=== PATIENT | female | born 1980 | race Caucasian/White ===

== ENCOUNTER 2018-04-22 12:46 | Emergency (ER) | payer OTHER, SELFPAY ==
[2018-04-22 12:47] VITALS: BP 140/83; PULSE 110; RESP 18; TEMP 36.6; O2SAT 100; BMI 25.2
[2018-04-22 13:02] VITALS: BP 121/96; PULSE 77; RESP 16; O2SAT 99
--- NOTE | 2018-04-22 13:20 | RAD_ITS ---
STUDY: X-RAY CHEST REASON FOR EXAM: Female, 38 years old. Shortness of breath. TECHNIQUE: Single AP portable view of the chest. COMPARISON: None. FINDINGS: EKG electrodes are seen. The lungs are clear and expanded. There is no demonstrated pleural abnormality. Normal size heart. Normal mediastinum and nick. Normal visualized pulmonary arteries. Normal visualized aortic arch and descending thoracic aorta. Normal visualized thoracic spine. Normal visualized ribs, clavicles, and shoulders. There is no demonstrated abnormality of the visualized soft tissue structures of the upper abdomen. RAD/Chest 1 View (Portable) IMPRESSION: Normal x-ray examination of the chest. Electronically Signed: Marcelo Méndez MD at 13:42 EDT Tel [phone], Service support ,
--- NOTE | 2018-04-22 13:20 | EKG12_ITS ---
Test Reason : DIZZINESS Blood Pressure : / mmHG Vent. Rate : 090 BPM Atrial Rate : 090 BPM P-R Int : 156 ms QRS Dur : 092 ms QT Int : 382 ms P-R-T Axes : 072 068 044 degrees QTc Int : 467 ms Normal sinus rhythm Normal ECG Confirmed by ELSA DOMÍNGUEZ ([id number]), writer editor ROGELIO MERINO ([id number]) on 05/05/2018 5:55:29 PM Referred By: DANELLE Confirmed By:ELSA DOMÍNGUEZ
--- NOTE | 2018-04-22 13:23 | ED.VISSUMM ---
- ER Visit Summary Date of Service: 04/22/18 Chief Complaint: Dizziness History of Present Illness: The patient is a 38 F presents with dizziness which she describes as lightheadedness. She has felt like she was going to pass out but has not completely passed out. She complains of palpitations. She denies chest pain. Denies headache. Denies numbness or weakness. Denies other complaints. Physical Examination: Vitals are stable. Patient is afebrile. Alert no acute distress. HEENT exam is unremarkable. Neck is supple. Lungs are clear and equal bilaterally. Heart is regular rate and rhythm. Abdomen is soft nontender nondistended. Extremities are unremarkable. Skin is warm and dry. No focal neurologic deficit. Anxious Remainder of exam is unremarkable. Emergency Department Course and Treatment: Patient is given IV fluids. EKG sinus rate of 90 with no acute ischemic changes. Chest x-ray shows no acute process. CBC shows a white count 11.6. D-dimer is negative. Chemistries unremarkable other than potassium of 3.3. Troponin is negative. TSH is normal. She is given potassium oral replacement. On reevaluation, she is feeling improved. She is able to ambulate in the ED without any difficulty. She is advised to follow-up with her primary care physician. She is advised return to the ED for worsening complaints. Disposition: Discharge home Impression: Dizziness, resolved This note was generated with [employer] dictation software. It may contain incorrect words, spelling, and punctuation that were not noted in review of the chart prior to signing ED Disposition - Plan for ED Patient: Chief Complaint: Dizziness Referrals: Soham Christiansen MD [Primary Care Provider] -
[2018-04-22] MEDS: 0.9% Normal Saline 1,000 ML 1000 ML IV (14:12)
[2018-04-22 14:19] VITALS: BP 104/59; BP 110/76; BP 111/76; PULSE 73; PULSE 77; PULSE 99
[2018-04-22 14:25] LABS: Absolute Lymphocyte Count 0.87 X10^3/ul (0.83-4.51); Absolute Neutrophil Count 10.3 X10^3/uL (2.0-7.7); Basophil# 0.02 X10^3/uL; Basophil% 0.2 % (0-1); Eosinophil# 0.02 X10^3/uL; Eosinophils% 0.2 % (0-5); Hematocrit 40.8 % (37-47); Hemoglobin 13.6 g/dl (12.0-15.0); Lymphocyte # 0.87 X10^3/ul (4.0); Lymphocyte % 7.5 % (19-41); Mean Corp Hgb Conc 33.3 g/gl (32-36); Mean Corpuscular Hgb 28.9 pg (27.0-32.0); Mean Corpuscular Volume 86.8 fL (81-99); Mean Platelet Vol. 9.4 fl (6.2-12.0); Monocyte# 0.36 X10^3/uL; Monocyte% 3.1 % (0-10); Neutrophil # 10.33 X10^3/uL (2.7-7.7); Neutrophil % 88.9 % (47-70); Platelet Count 269 K/mm3 (150-450); RBC Distribution Width CV 12.6 % (11.6-14.6); RBC Distribution Width SD 40.4 fl (35.1-43.9); White Blood Count 11.6 K/mm3 (4.4-11.0)
[2018-04-22 14:28] LABS: POSITIVE COUNT NO; POSITIVE DIFFERENTIAL NO; POSITIVE MORPHOLOGY NO
[2018-04-22 14:35] LABS: D-Dimer Quantitative (DVT/PE) 0.47 FEU/ug/m (0.27-0.49)
[2018-04-22 15:05] LABS: Anion Gap 9 (5-15); BUN 12 mg/dL (7-18); BUN/Creat Ratio 14.5 RATIO (10-20); Calcium,Total 8.9 mg/dL (8.5-10.1); Chloride 108 mmol/L (98-107); Creatinine, Serum 0.83 mg/dL (0.55-1.02); EST Glomerular Filtration Rate 82 mL/min (>60); Est Glom Filt Rate - Afr Amer 99 mL/min (>60); Estimated Creatinine Clearance 78.58 ml/min; Glucose 96 mg/dL (74-106); Potassium 3.3 mmol/L (3.5-5.1); Sodium Level 142 mmol/L (136-145)
[2018-04-22 15:37] VITALS: BP 107/56; PULSE 74; RESP 16; O2SAT 97
--- NOTE | 2018-04-22 15:41 | ED.DEP ---
ED Disposition - Plan for ED Patient: Chief Complaint: Dizziness Instructions: ED Near Syncope Unkn Referrals: Soham Christiansen MD [Primary Care Provider] -
== END 2018-04-22 16:11 | disposition home or self-care (01) ==
PROVIDERS: Emergency Provider Emergency Medicine; Family Provider Family Medicine; PCP Family Medicine
DX: R42 Dizziness and giddiness (principal); R00.2 Palpitations; Z90.710 Acquired absence of both cervix and uterus
CPT/HCPCS: 71045; 80048; 84443; 84484; 85025; 85379; 93005; 99285; J7030; A4216

== ENCOUNTER → 2018-04-25 11:36 | Outpatient (CLI) | payer OTHER, SELFPAY | PROVIDERS: Family Provider Family Medicine; PCP Family Medicine | DX: R42 Dizziness and giddiness (principal); R00.2 Palpitations; H53.19 Other subjective visual disturbances | CPT/HCPCS: 93225; 93226 ==

== ENCOUNTER 2020-03-24 08:36 | Emergency (ER) | payer OTHER, SELFPAY ==
[2020-03-24 08:37] VITALS: BP 143/93; PULSE 104; RESP 20; TEMP 36; O2SAT 99; BMI 27.5
--- NOTE | 2020-03-24 08:53 | EKG12_ITS ---
Test Reason : Blood Pressure : / mmHG Vent. Rate : 085 BPM Atrial Rate : 085 BPM P-R Int : 134 ms QRS Dur : 088 ms QT Int : 364 ms P-R-T Axes : 059 070 024 degrees QTc Int : 433 ms Sinus rhythm with marked sinus arrhythmia Nonspecific ST and T wave abnormality Abnormal ECG Confirmed by EMIL TINEO, CAIT ([id number]), photograph editor ROGELIO MERINO ([id number]) on 03/28/2020 2:20:01 PM Referred By: NARENDRA Confirmed By:CAIT STEIN MD
--- NOTE | 2020-03-24 08:54 | RAD_ITS ---
STUDY: X-RAY CHEST REASON FOR EXAM: Female, 40 years old. Dizziness, chest tightness, nausea TECHNIQUE: PA and lateral views of the chest. COMPARISON: Comparison is made with prior examination dated April 22, 2018. FINDINGS: EKG electrodes are seen. Scattered calcified granulomas. The lungs are clear. There is no demonstrated pleural abnormality. Normal size heart. Normal mediastinum and nick. Normal visualized pulmonary arteries. Normal visualized aortic arch and descending thoracic aorta. Normal visualized thoracic spine. Normal visualized ribs, clavicles, and shoulders. There is no demonstrated abnormality of the visualized soft tissue structures of the upper abdomen. RAD/Chest PA and Lateral IMPRESSION: Unremarkable examination. Electronically Signed: Marcelo Méndez, at 9:29 EDT , Service support ,
[2020-03-24 09:11] VITALS: O2SAT 99
[2020-03-24 09:13] LABS: Absolute Lymphocyte Count 1.38 X10^3/uL (0.83-4.51); Absolute Neutrophil Count 7.7 X10^3/uL (2.0-7.7); Basophil# 0.06 X10^3/uL; Basophil% 0.6 % (0-1); Eosinophil# 0.05 X10^3/uL; Eosinophils% 0.5 % (0-5); Hematocrit 43.3 % (37-47); Hemoglobin 15.1 g/dL (12.0-15.0); Lymphocyte # 1.38 X10^3/ul (4.0); Lymphocyte % 14.4 % (19-41); Mean Corp Hgb Conc 34.9 g/dL (32-36); Mean Corpuscular Volume 88.9 fL (81-99); Mean Platelet Vol. 9.3 fl (6.2-12.0); Monocyte# 0.38 X10^3/uL; NRBC Flagged by Analyzer 0 % (0-5); Neutrophil # 7.67 X10^3/uL (2.7-7.7); Neutrophil % 80.2 % (47-70); Platelet Count 288 K/mm3 (150-450); RBC Distribution Width CV 12.4 % (11.6-14.6); RBC Distribution Width SD 39.3 fl (35.1-43.9); Red Blood Count 4.87 M/mm3 (4.2-5.4); White Blood Count 9.6 K/mm3 (4.4-11.0)
[2020-03-24] MEDS: Ondansetron 4 MG/2 ML Vial IM (09:13)
[2020-03-24] MEDS: LORazepam 2 MG/ML Syringe 0.5 MG IV (09:13)
[2020-03-24] MEDS: 0.9% Normal Saline 1,000 ML 1000 ML IV ×2 (09:25→10:01)
[2020-03-24 09:32] LABS: Anion Gap 11 (5-15); BUN 13 mg/dL (7-18); BUN/Creat Ratio 13.4 RATIO (10-20); Calcium,Total 9.3 mg/dL (8.5-10.1); Chloride 105 mmol/L (98-107); Creatinine, Serum 0.97 mg/dL (0.55-1.02); EST Glomerular Filtration Rate 67 mL/min (>60); Est Glom Filt Rate - Afr Amer 81 mL/min (>60); Estimated Creatinine Clearance 65.91 ml/min; Glucose 132 mg/dL (74-106); Potassium 3.4 mmol/L (3.5-5.1); Sodium Level 139 mmol/L (136-145)
[2020-03-24 10:00] LABS: D-Dimer Quantitative (DVT/PE) 0.56 FEU/ug/m (0.27-0.49)
--- NOTE | 2020-03-24 10:01 | CT_ITS ---
STUDY: CTA CHEST REASON FOR EXAM: Female, 40 years old. Elevated ddi james RADIATION DOSAGE (If Supplied By Facility): CTDIvol = ( 8.66 ) mGy, DLP = ( 365.32 ) mGycm TECHNIQUE: The examination was performed with the intravenous administration of 100ml isovue 370. Post-processing of the angiographic images was performed, with multiplanar reformation and 3D reconstruction. Individualized dose optimization techniques were used for this CT. COMPARISON: Comparison is made with prior chest radiograph done earlier in the day. FINDINGS: There is a 2.2 cm by 2.6 cm soft tissue nodular density in the upper lateral portion of the right breast. A tissue clip marker is seen within from prior biopsy. Normal enhancement of the main pulmonary artery and right and left pulmonary arteries. Normal enhancement of the bilateral peripheral pulmonary arteries. There is no demonstrated pulmonary embolism. Normal thoracic aorta and visualized great vessels. There is no demonstrated aortic dissection. Normal heart and pericardium. Normal mediastinum. Normal hilar regions. Normal visualized trachea and bronchi. The lungs are well expanded. Normal pulmonary parenchyma. Normal pleura. Normal chest wall structures. Normal osseous structures. Normal visualized upper abdomen. CT/CTA Chest W/WO Contrast IMPRESSION: Normal CTA chest examination, without a demonstrated pulmonary embolism or arterial dissection. 2.2 cm x 2.6 cm soft tissue nodule in the right breast as described. A tissue clip marker is seen within it from prior biopsy. Electronically Signed: Marcelo Méndez, at 10:35 EDT , Service support ,
--- NOTE | 2020-03-24 10:02 | ED.VIS.GEN ---
History of Present Illness Chief Complaint: Dizziness Narrative: 40-year-old female presents with palpitations and lightheadedness. She denies recent travel. No recent immobilization. No history of DVT or PE. She essentially woke up feeling lightheaded and her heart rate was elevated. This happened to her a few years ago. She saw basket sorter and wore a Holter monitor. No conclusive cause was found. She denies increased caffeine intake. She denies stressors. Prior similar symptoms: Yes Capacity - Capacity Assessment Tool Can the patient make a choice & communicate that choice?: Yes Past Medical History - Allergies and Home Meds Allergies/Adverse Reactions: Allergies No Known Allergies Allergy (Verified 03/24/20 08:41) Primary Care Physician: Christ Sandhu MD [Primary Care Provider] - Prior records reviewed: Yes Lives: Spouse/ Significant Other Smoking Status: Former smoker Review of Systems All systems negative except as indicated General: Denies: Chills, Fever, Sweats Eyes: Denies: Visual changes - bilaterally, Diplopia ENT: Denies: Rhinorrhea, Sore throat Cardiovascular: Reports: Palpitations, Heart racing. Denies: Chest pain Respiratory: Reports: Dyspnea. Denies: Cough, Dyspnea on exertion Gastrointestinal: Denies: Abdominal pain, Nausea, Vomiting, Diarrhea, Melena, Hematochezia Genitourinary: Denies: Dysuria, Hematuria, Frequency Musculoskeletal: Denies: Back pain, Extremity Pain Skin: Denies: Rash, Wounds Neurological: Denies: Headache, Weakness, Numbness Physical Exam Vital Signs/Narrative: Vital Signs Temp Pulse Resp BP Pulse Ox 03/24/20 09:11 99 03/24/20 08:37 96.8 F L 104 H 20 H 143/93 H 99 Diagnostic/Tx/Re-eval - Medical Decision Making Labs are within normal limits. Troponin negative. D-dimer was elevated however. I therefore ordered a CT angiogram which was negative. A repeat troponin is also negative. She was given IV fluids and a small dose of Ativan. She was observed. Heart rate remains normal, in the 80s. Blood pressure normal. She is not in distress. This is somewhat of a recurrent issue for her and she has seen cardiology in the past but not for a few years. I do think it is reasonable for her to follow-up with cardiology again, possibly for Holter monitor. She will return here if worse. ED Disposition - Plan for ED Patient: Disposition: Home or Assisted Living Diagnosis: Palpitations, Light-headedness Instructions: ED Palpitations, ED Near-Fainting Uncertain Cause Referrals: Chilo Vick MD [STAFF PHYSICIAN] -
[2020-03-24 10:53] VITALS: BP 112/69; PULSE 103; RESP 18; O2SAT 100
[2020-03-24 13:07] VITALS: BP 131/66; PULSE 79; RESP 16; O2SAT 98
== END 2020-03-24 13:11 | disposition home or self-care (01) ==
PROVIDERS: Emergency Provider Emergency Medicine; PCP Family Medicine
DX: R00.2 Palpitations (principal); R42 Dizziness and giddiness; Z87.891 Personal history of nicotine dependence
CPT/HCPCS: 36415; 71046; 71275; 80048; 84484; 85025; 85379; 93005; 96361; 96372; 96374; 99284; J7030; J7050; Q9967; A4216; J2405